=== PATIENT | female | born 1950 | race Caucasian/White ===

== ENCOUNTER → 2017-08-18 | Outpatient (CLI) | payer OTHER ==
[2015-07-16 22:38] VITALS: BP 132/69
--- NOTE | 2017-08-18 15:42 | RAD ---
DATE: 08/18/17 EXAM: DIGITAL SCREEN LT W/CAD HISTORY: Routine screening, history of right breast cancer, status post right mastectomy. COMPARISON: 08/01/16 This study was interpreted with the benefit of Computerized Aided Detection (CAD). TECHNIQUE: Routine CC and MLO views of the left breast are obtained. FINDINGS: Breast Density: HETERO The breast parenchyma is heterogenously dense, which could reduce sensitivity of mammography. Breast parenchyma level C.. No suspicious clustered microcalcifications, focal asymmetric densities or masses are seen. Benign-appearing calcifications seen in the left breast. Skin and nipples are intact IMPRESSION: Benign findings BI-RADS CATEGORY: 2 BENIGN FINDING(S) RECOMMENDED FOLLOW-UP: 12M 12 MONTH FOLLOW-UP PQRS compliance statement: Patient information was entered into a reminder system with a target due date for the next mammogram. Mammography is a sensitive method for finding small breast cancers, but it does not detect them all and is not a substitute for careful clinical examination. A negative mammogram does not negate a clinically suspicious finding and should not result in delay in biopsying a clinically suspicious abnormality. "Our facility is accredited by the [employer] Mammography [employer]."
== END | disposition home or self-care (01) ==
LOC: MAMMO 13:40
PROVIDERS: ATTEND Internal Medicine Hematology & Oncology
DX: Z12.31 Encounter for screening mammogram for malignant neoplasm of breast (principal)
CPT/HCPCS: G0202; 77067

== ENCOUNTER → 2019-12-28 | Outpatient (CLI) | payer OTHER ==
[2015-07-16 22:38] VITALS: BP 132/69
--- NOTE | 2019-12-29 17:40 | RAD ---
Examination: DIGITAL SCREEN LT W/CAD History: Right mastectomy in 2007. Annual screening. Comparison/Correlation: 08/18/2017, 08/01/2016, 06/15/2015, 06/19/2014 FINDINGS: Full-field digital screening mammography of the left breast was performed. MLO and CC projections bilaterally were provided. CAD was utilized. The breasts are heterogeneously dense, which may obscure small masses. Left axillary level pacemaker device is present. There are no suspicious calcification clusters. No new masses or new distortion. IMPRESSION: BI-RADS Category: 1: Negative. Annual mammography is recommended. Patient information is entered into reminder system with a target due date for the next screening mammogram. Mammography is the most sensitive method for finding small breast cancers, but it does not detect them all and is not a substitute for careful clinical examination. A negative mammogram does not negate a clinically suspicious finding and should not result in delay in biopsying a clinically suspicious abnormality. "Our facility is accredited by the [employer] Mammography [employer]." Electronically signed by: Rene Wiseman MD (12/29/2019 5:37 PM) [id number]
== END | disposition home or self-care (01) ==
LOC: MAMMO 12:54
PROVIDERS: ATTEND Internal Medicine Hematology & Oncology
DX: Z12.31 Encounter for screening mammogram for malignant neoplasm of breast (principal); Z90.11 Acquired absence of right breast and nipple; Z85.3 Personal history of malignant neoplasm of breast; Z95.0 Presence of cardiac pacemaker
CPT/HCPCS: 77067